=== PATIENT | male | born 1990 | race African-American/Black ===

== ENCOUNTER 2020-08-14 11:28 | Emergency (ER) | payer MEDICAID, OTHER ==
[2020-08-14] MEDS ORDERED: Boostrix 0.5 ML (Tdap) VIAL ONE (12:09)
== END 2020-08-14 12:59 ==
LOC: ERS 11:28
DX: S00.01XA Abrasion of scalp, initial encounter (principal); S60.512A Abrasion of left hand, initial encounter; S60.511A Abrasion of right hand, initial encounter; F17.210 Nicotine dependence, cigarettes, uncomplicated; Z23 Encounter for immunization; V49.9XXA Car occupant (driver) (passenger) injured in unspecified traffic accident, initial encounter
CPT/HCPCS: 70450; 71046; 72125; 90471; 90715